=== PATIENT | female | born 1995 | race Caucasian/White ===

== ENCOUNTER 2021-05-17 00:09 | Inpatient (IN) | payer OTHER, SELFPAY ==
[2021-05-17] VITALS (18 sets, daily range): BP systolic 81–117; BP diastolic 42–87; PULSE 64–171; RESP 14–20; TEMP 36.1–37.2; O2SAT 96–100; BMI 26.5
--- NOTE | 2021-05-17 00:28 | LDADM ---
This patient, Ana Hudson, was admitted to Labor/Delivery/Recovery 105 on 05/17/21 at 00:09. Plans for labor, pain management and were discussed with patient. Patient/family oriented to hospital policies and general routines including ID bracelet, bed and alarms, visiting hours, pain management, procedures, bathroom and other care routines, personal items, smoking policy, room service/diet and guest tray routines, security routines, and visiting hours. Patient/Family are encouraged to report perceived risks to care and to ask questions if they do not understand what they are told or what they should do. See OBIX for further documentation.
[2021-05-17] MEDS: AMPICILLIN 2 GM/NS 100 ML 2 GM/100 ML BAG IVPB (00:30)
[2021-05-17] MEDS: LACTATED RINGERS 1,000 ML 125 ML IV CONT (00:30)
[2021-05-17 00:57] LABS: Basophils Absolute Auto 0.1 K/mm3 (0.0-0.1); Basophils Percent Auto 0.5 % (0.2-1.2); Eosinophils Absolute Auto 0.1 K/mm3 (0-0.3); Eosinophils Percent Auto 0.7 % (0-4.4); Immature Granulocyte Absolute 0.47 K/mm3 (0.00-0.031); Immature Granulocyte Percent A 3.4 % (0-0.5); Lymphocytes Absolute Auto 2.44 K/mm3 (0.9-3.2); Lymphocytes Percent Auto 17.4 % (18.3-44.2); Mean Corpuscular HGB Conc 34.1 g/dl (32-36); Mean Corpuscular Hemoglobin 30.6 pg (26-34); Mean Corpuscular Volume 89.5 fl (80-100); Mean Platelet Volume 11.4 fl (7.4-10.4); Monocytes Percent Auto 6.8 % (2.6-8.5); Neutrophils Percent Auto 71.2 % (45.5-73.1); Platelet Count Result 214 k/mm3 (150-375); Red Blood Count 4.58 M/mm3 (4.2-5.4); Red Cell Distribution Width 13.2 % (11.5-14.5)
[2021-05-17] MEDS: OXYTOCIN 30 UNITS/NS 500 ML 30 UNITS/500 ML BAG 999 UNITS IV CONT (01:10)
--- NOTE | 2021-05-17 01:22 | PM.OBPRVD ---
OB - Delivery Note Procedure Delivery date: 05/17/21 Procedure: vaginal delivery Intrapartal events: Precipitous Labor < 3 hours Induction method: none Delivery monitor: external FHT and external uterine Route of delivery: Laceration Description: Perineal - 1st Degree Delivery repair: vicryl Specimen: Yes Quantitative Blood Loss (ml): 110 Anesthesia type: Local Disposition: floor [place] Baby Date of : 05/17/21 Time of : 01:04 Weeks of gestation at delivery: 39 gender: Female presentation: vertex Placenta delivery description: Spontaneous cord vessel description: 3 Vessels, Nuchal Cord, Loose, Clamped/Cut and Delayed Cord Clamping score one minute: 9 score five minutes: 9 Narrative: Delivered by RN, CNM at and delivered placenta and repaired laceration, mother and baby in stable condition
[2021-05-17] MEDS: OXYTOCIN 30 UNITS/NS 500 ML 30 UNITS/500 ML BAG 125 UNITS IV CONT (01:43)
[2021-05-17] MEDS: LIDOCAINE HCL 1% PF 30 ML VIAL (01:54)
[2021-05-17] MEDS: ACETAMINOPHEN 325 MG TABLET 650 MG PO (02:45)
[2021-05-17] MEDS: WITCH HAZEL 40 PADS 1 PAD TOPICAL (02:47)
[2021-05-17] MEDS: IBUPROFEN 600 MG TABLET PO ×2 (02:47→10:00)
[2021-05-17] MEDS: BENZOCAINE 20% AER SPR (*SP) 56 GM CAN 1 SPRAY TOPICAL (02:47)
[2021-05-17 09:56] LABS: Rapid Plasma Reagin Non-Reactive (NonReactive)
[2021-05-17] MEDS: MULTIVIT/MIN/PREN/FOL AC/IRON TABLET 1 TAB PO (10:00)
--- NOTE | 2021-05-17 11:30 | PC.NURSE ---
1045 - Mother verbalizes she is able to independently latch with appropriate positioning/alignment. She denies any nipple discomfort, is feeding as required and waking infant to feed if needed. is currently meeting outcomes for weight, output, jaundice and feeding frequencies. Mother states she does not require feeding assist/education at this time. Reviewed resources in the Mom/Baby guide. Instructed mother to call out for future feedings if assistance is needed.
[2021-05-18 01:10] VITALS: BP 100/55; PULSE 68; RESP 16; TEMP 36.9; O2SAT 98
[2021-05-18 05:43] LABS: Hematocrit 35.2 % (37.0-47.0); Hemoglobin 11.9 g/dL (12.0-15.0)
[2021-05-18 08:00] VITALS: BP 90/48; PULSE 71; RESP 16; RESP 97; TEMP 36.3; O2SAT 97; O2SAT 98
[2021-05-18] MEDS: MULTIVIT/MIN/PREN/FOL AC/IRON TABLET 1 TAB PO (08:44)
[2021-05-18] MEDS: DOCUSATE SODIUM 100 MG CAPSULE PO (08:44)
--- NOTE | 2021-05-18 09:50 | P.PNOB_ITS ---
OB - PN: Subj Subjective Date/time seen: 05/18/21 09:50 Patient comments: no complaints baby status: doing well [place] feeding status: exclusively bottle feeding OB - PN: Obj Data Labs CBC & Chem 7: 05/18/21 05:26 Labs: Laboratory Results - last 24 hr 05/17/21 05/18/21 00:25 05:26 Hgb 11.9 L Hct 35.2 L RPR Non-reactive OB - PN A/P Plan day: 1 Plan: routine care and discharge home Time Spent With Patient Time: Total time spent is greater than 50% in coordination of care (as documented) at patient's floor/unit and/or counseling patient: Review of Systems Review of Systems: All systems reviewed & are unremarkable except as noted in HPI and below Exam Const: General: cooperative, healthy appearing, comfortable and no acute distress
--- NOTE | 2021-05-18 09:52 | PM.OBDSVD ---
DS: Admitting Diagnosis Discharge Date 05/18/21 Admitting Diagnosis labor OB - DS: Summary OB Procedures : None OB Procedures Intrapartum: Spontaneous Vag Delivery OB Procedures: : None Time Spent with Patient Time attestation: Total time spent providing and/or coordinating discharge services: DS: Data Data Completed and Pending Pending studies at discharge: Pending at discharge 05/17/21 01:10 Surgical [PTH] Routine Labs on day of discharge: Labs from last 24 hours 05/18/21 05/17/21 05:26 00:25 Hgb 11.9 L Hct 35.2 L RPR Non-reactive Discharge Plan Discharge Attending physician on discharge: Julia Matias Discharging Clinician: Tori Lee Patient Disposition: Home, Self-Care Activity: pelvic rest Diet: regular Patient Instructions: Antibiotic Form Stand Alone Forms: General Discharge Information Follow-up/Referrals: Tori Lee, CNM [Certified Nurse Machine Feeder Floorperson] - 4 Weeks Discharge Medications: New ibuprofen 600 mg Tablet 600 mg PO Q6H PRN (Reason: Cramping) Qty: 30 RF: 0 Continued PNV cmb#95-ferrous fumarate-FA [] 28 mg iron- 800 mcg Tablet 1 tablet PO DAILY RF: 0 Date of admission: 05/17/21 00:09 Primary Care Provider: PHYSICIAN,BRANCH SERVICE ASSOCIATE Admitting Provider: Julia Matias Attending physician on admission: Julia Matias Condition: Stable
--- NOTE | 2021-05-18 09:53 | PM.OBDSVD ---
DS: Admitting Diagnosis Discharge Date 05/18/21 Admitting Diagnosis labor OB - DS: Summary OB Procedures : None OB Procedures Intrapartum: Spontaneous Vag Delivery OB Procedures: : None Time Spent with Patient Time attestation: Total time spent providing and/or coordinating discharge services: DS: Data Data Completed and Pending Pending studies at discharge: Pending at discharge 05/17/21 01:10 Surgical [PTH] Routine Labs on day of discharge: Labs from last 24 hours 05/18/21 05/17/21 05:26 00:25 Hgb 11.9 L Hct 35.2 L RPR Non-reactive Discharge Plan Discharge Attending physician on discharge: Julia Matias Discharging Clinician: Tori Lee Patient Disposition: Home, Self-Care Activity: pelvic rest Diet: regular Patient Instructions: Antibiotic Form Stand Alone Forms: General Discharge Information Follow-up/Referrals: Tori Lee, CNM [Certified Nurse Undergraduate Advisor] - 4 Weeks Discharge Medications: New ibuprofen 600 mg Tablet 600 mg PO Q6H PRN (Reason: Cramping) Qty: 30 RF: 0 Continued PNV cmb#95-ferrous fumarate-FA [] 28 mg iron- 800 mcg Tablet 1 tablet PO DAILY RF: 0 Date of admission: 05/17/21 00:09 Primary Care Provider: PHYSICIAN,POWER PRESS SUPERVISOR Admitting Provider: Julia Matias Attending physician on admission: Julia Matias Condition: Stable
[2021-05-18] MEDS: TETANUS,DIPHTHERIA,AC PERTUSSIS ADULT (0.5 ML) BOOSTRIX IM (14:00)
--- NOTE | 2021-05-18 16:26 | PC.NURSE ---
Patient was given the opportunity to view the discharge video Mother & Baby Care, The First Two Weeks and to ask questions. Patient declined viewing the video and has been given the mother/baby guide for home reference.
[2021-05-20 08:55] VITALS: BP 97/52; PULSE 86; RESP 16; TEMP 37.1; O2SAT 99
== END 2021-05-18 16:46 | disposition home or self-care (01) | DRG 807 ==
LOC: ANHLDR 00:27 → ANHOB2 04:39
PROVIDERS: Advanced Practice Midwife; Admitting Provider Obstetrics & Gynecology; Visit Provider Obstetrics & Gynecology
DX: O62.3 Precipitate labor (principal); Z37.0 Single live birth; Z3A.39 39 weeks gestation of pregnancy; O99.824 Streptococcus B carrier state complicating childbirth; O36.8330 Maternal care for abnormalities of the fetal heart rate or rhythm, third trimester, not applicable or unspecified; O69.81X0 Labor and delivery complicated by cord around neck, without compression, not applicable or unspecified; O70.0 First degree perineal laceration during delivery
CPT/HCPCS: 36415; 85014; 85018; 85025; 86592; 86850; 86900; 86901; 88307; 90715; A9270; J0290; J2590; J7120

== ENCOUNTER → 2022-09-09 16:00 | Outpatient (CLI) | payer OTHER, SELFPAY ==
--- NOTE | ~2022-09-09 | US_ITS ---
EXAMINATION: US breast LT limited HISTORY: Left nipple discharge and palpable lumps of the left axilla TECHNIQUE: Targeted subareolar and left axillary ultrasound are performed. FINDINGS: There are mildly dilated subareolar ducts of the left breast. No suspicious cystic or solid mass is identified. Normal-appearing lymph nodes are present in the left axilla. No suspicious left axillary lymphadenopathy is identified. IMPRESSION: No specific sonographic correlate is identified for the patient's reported nipple discharge. Further evaluation at this time should be based on clinical assessment. Continued follow-up physical examinat ion is recommended. BI-RADS Category 2: Benign finding(s). Reviewed, dictated and finalized at location A. IMPRESSION: No specific sonographic correlate is identified for the patient's reported nipp le discharge. Further evaluation at this time should be based on clinical asses sment. Continued follow-up physical examination is recommended. BI-RADS Category 2: Benign finding(s).
== END ==
PROVIDERS: Visit Provider Nurse Practitioner Obstetrics & Gynecology
DX: N64.52 Nipple discharge (principal)
CPT/HCPCS: 76642

== ENCOUNTER → 2023-04-23 14:53 | Outpatient (CLI) | payer OTHER, SELFPAY ==
--- NOTE | ~2023-04-23 | US_ITS ---
US breast RT complete INDICATION: Right breast pain for 2-3 months. TECHNIQUE: Dedicated complete right breast ultrasound including all 4 quadrants, the axilla and subar eolar locations COMPARISON: No prior studies for comparison. FINDINGS: The right breast is composed of normal heterogeneous echotexture without focal solid or cys tic mass. There are normal right axillary lymph nodes. IMPRESSION: 1: Normal right breast ultrasound. BI-RADS CATEGORY 1 - NEGATIVE Reviewed, dictated and finalized at location A. ICAL TRIALS ASSISTANT
== END ==
PROVIDERS: PCP Nurse Practitioner Obstetrics & Gynecology; Visit Provider Nurse Practitioner Obstetrics & Gynecology
DX: N64.4 Mastodynia (principal)
CPT/HCPCS: 76641